=== PATIENT | male | born 1990 | race Caucasian/White ===

== ENCOUNTER 2024-10-06 22:47 | Emergency (ER) | payer BC, SELFPAY ==
[2024-10-06 23:01] VITALS: BP 130/93
[2024-10-06 23:49] VITALS: BP 125/72
[2024-10-07] VITALS: BP 108/72
--- NOTE | 2024-10-07 00:28 | ED.GENMED ---
History of Present Illness
General
Chief Complaint: Cold/Flu/URI Symptoms
Source: patient
Exam Limitations: none
Time Seen by Provider: 10/07/24 00:10
Nursing documentation reviewed up to this point in time: agreed with
History of Present Illness
History of Present Illness:
33-year-old male limited past medical history 3 visits in urgent care this week sore throat given amoxicillin symptoms worsening given Augmentin, he has been having this evening nausea dizziness ringing in his ears pressure in his ears headache
swollen glands, nondrinker social marijuana use, was doing some heavy lifting at his job thinks he inhaled some dust which brought on an asthma attack
Past History
Past History
ED Past Medical History: Asthma
Social History
Tobacco: Non-smoker
Alcohol: None
Drug: Marijuana
Living: with family
Employment: Employed
Review of Systems
Review of Systems
All Other Systems: Not applicable
Constitutional: Reports fever and fatigue
EENT: Reports sore throat
Respiratory: Reports no symptoms
Cardiac: Reports no symptoms
ABD/GI: Reports nausea
Neurological: Reports dizzy, headache and other (Ringing in the ear)
Phy Exam
Physical Exam
Physical Exam:
Physical Exam
General: no apparent distress, not acutely ill
Neck: Posterior pharynx is clear TMs red retracted
Heart: s1/s2 regular rate and rhythm, no murmur. equal radial pulses.
Lungs: no acute respiratory distress. clear bilaterally no wheezing
Abdomen: Not tender
Neuro: alert and oriented. no focal neurological deficits
Skin: no rash
Psychiatric: well kept. interactive and cooperative
Extremities: no edema.
Course
Orders/Labs/Results
Orders:
Orders
10/07/24 00:27
Dexamethasone Sod Phosphate [Decadron] 10 mg IV NOW STA
Ketorolac [Toradol] 30 mg IV NOW STA
Ondansetron Injectable [Zofran] 4 mg IV NOW STA
10/07/24 00:43
Complete Blood Count/With Diff Urgent
Comprehensive Metabolic Panel Urgent
Monotest Urgent
Abnormal Lab Results
10/07/24
00:43
WBC 12.1 H 10^3/uL
(4.8-10.8)
MPV 10.7 H fL
(7.4-10.4)
Abs Immat Gran (auto) 0.1 H 10^3/uL
(0-0.05)
Absolute Neuts (auto) 9.2 H 10^3/uL
(1.4-6.5)
Neutrophils % 76.6 H %
(42.2-75.2)
Lymphocytes % 17.8 L %
(20.5-51.1)
BUN 22 H mg/dl
(9-20)
Glucose 111 H mg/dl
(70-99)
10/07/24 00:43
10/07/24 00:43
Vital Signs
Initial and Last Documented VS:
Initial Vital Signs
Temp Pulse Resp BP Pulse Ox
99 F 85 18 130/93 99
10/06/24 23:01 10/06/24 23:01 10/06/24 23:01 10/06/24 23:01 10/06/24 23:01
Last Documented Vital Signs
Temp Pulse Resp BP Pulse Ox
99 F 66 21 108/72 99
10/06/24 23:01 10/07/24 00:15 10/07/24 00:15 10/07/24 00:00 10/07/24 00:30
MDM/Problems Addressed
Differential Diagnosis Includes:
Viral syndrome sinusitis vertigo dehydration mono doubt [employer] infection or serious bacterial infection
MDM/Problems Addressed:
Dizziness congestion nausea
*Pulse Oximetry
SaO2: 99
Oxygen Mode of Delivery: Room air
Patient hypoxic: no
*Critical Care Note
Total Time (30-74mins, 75-104mins- exclusive of procedures): Not Applicable
Update Note
Update Note:
1:30 AM update labs noted patient feeling better will discharge with a Medrol Dosepak and Zofran
ED Attending Note
-
Portions of this chart may have been created with voice recognition software.� Occasional wrong word or��sound alike� substitutions may have occurred due to the inherent limitations of voice recognition software.
Discharge Plan
Departure
Patient Disposition: Home (Routine Discharge)
Date of Disposition: 10/07/24
Time of Disposition: 01:44
Patient with high blood pressure during this ER visit?: No
Condition: Good
Covid-19: Not Applicable
Discharge Problem:
Acute sinusitis
Instructions: Sinusitis in adults - ED discharge instructions
Prescriptions:
New
methylprednisolone [Medrol (Senthil)] 4 mg tablets,dose pack
See Rx Instructions .ROUTE .COMPLEX Qty: 21 0RF
Rx Instructions:
for 6 days
ondansetron 4 mg tablet,disintegrating
4 mg PO Q8H PRN (Reason: nausea and vomiting) Qty: 14 0RF
Referrals:
[facility] [Provider Group] - Next open appointment
Activity Restrictions/Additional Instructions:
Drink plenty of fluids, continue your antibiotics,
Interventions
Interventions:
*Risk Screen - Suicide Last Done: 10/06/24 23:01
*General Assessment Last Done: 10/06/24 23:01
*Neglect/Abuse Screening Last Done: 10/06/24 23:01
*ED- Fall Risk Assessment Last Done: 10/06/24 23:01
*ED COVID-19 Vaccine History Last Done: 10/06/24 23:01
Discharge Date and Time
Print Language: UPPER SORBIAN
[2024-10-07] MEDS: ZOFRAN 4 MG IV (00:44)
[2024-10-07] MEDS: DECADRON 10 MG IV (00:44)
[2024-10-07] MEDS: TORADOL 30 MG IV (00:44)
[2024-10-07 00:45] VITALS: BMI 20.5
[2024-10-07 01:03] LABS: Hematocrit 39.2 % (39.0-52.0); Hemoglobin 13.9 g/dL (13.0-18.0); Mean Corp Hgb Conc. 35.5 g/dL (33.0-37.0); Mean Corpuscular Volume 80.0 fL (80.0-94.0); Nucleated Red Blood Cells % 0 % (-); Platelet Count 217 10^3/uL (130-400); Red Cell Dist. Width 12.5 % (11.5-14.5)
[2024-10-07 01:32] LABS: ALT (SGPT) 17 U/L (0-50); AST (SGOT) 25 U/L (17-59); Albumin 4.8 g/dl (3.5-5.0); Alkaline Phosphatase 56 U/L (38-126); Blood Urea Nitrogen 22 mg/dl (9-20); Calcium 9.6 mg/dl (8.4-10.2); Carbon Dioxide 23 mmol/L (22-30); Chloride 107 mmol/L (98-107); Estimated Creatinine Clearance 92 ml/min; Glucose 111 mg/dl (70-99); Potassium 4.0 mmol/L (3.5-5.1); Sodium 142 mmol/L (135-145); Total Protein 7.6 g/dl (6.3-8.2); eGFR > 60.00
[2024-10-07 02:13] VITALS: BP 110/67
== END 2024-10-07 02:00 | disposition home or self-care (01) ==
LOC: EMR 22:47
PROVIDERS: EMERGENCY PHYSICIAN Emergency Medicine
DX: J01.90 Acute sinusitis, unspecified (principal); J45.909 Unspecified asthma, uncomplicated
CPT/HCPCS: 99283; 96374; 96375; 80053; 85025; 86308